=== PATIENT | female | born 1990 | race Caucasian/White ===

== ENCOUNTER → 2023-10-30 16:02 | Outpatient (REF) | payer BC, SELFPAY | LOC: PNTC 16:02 | PROVIDERS: ATTENDING PHYSICIAN Obstetrics & Gynecology | DX: O35.5XX0 Maternal care for (suspected) damage to fetus by drugs, not applicable or unspecified (principal); O98.519 Other viral diseases complicating pregnancy, unspecified trimester; U07.1 COVID-19 | CPT/HCPCS: 76816 ==

== ENCOUNTER → 2023-11-28 15:54 | Outpatient (REF) | payer BC, SELFPAY | LOC: PNTC 15:54 | PROVIDERS: ATTENDING PHYSICIAN Obstetrics & Gynecology | DX: O98.519 Other viral diseases complicating pregnancy, unspecified trimester (principal) | CPT/HCPCS: 76816 ==

== ENCOUNTER 2023-12-08 01:24 | Inpatient (IN) | payer BC, SELFPAY ==
[2023-12-08 01:50] VITALS: BP 141/58; BMI 33.0
[2023-12-08] MEDS: LR 1000 IV (02:20)
[2023-12-08 02:41] LABS: % Basophils 0.3 % (0-2); % Eosinophils 0.6 % (0-6); % Immature Granulocytes 0.6 % (0-0.5); % Monocytes 5.4 % (1.7-9.3); % Neutrophils 81.1 % (42.2-75.2); Absolute Basophils 0.1 10^3/uL (0-0.2); Absolute Eosinophils 0.1 10^3/uL (0-0.7); Absolute Immature Granulocytes 0.1 10^3/uL (0-0.05); Absolute Lymphocytes 2.1 10^3/uL (1.2-3.4); Absolute Neutrophils 14.2 10^3/uL (1.4-6.5); Hematocrit 35.7 % (37.0-47.0); Hemoglobin 12.6 g/dL (12.0-16.0); Mean Corp Hgb Conc. 35.3 g/dL (33.0-37.0); Mean Corpuscular Hgb 31.2 pg (27.0-31.0); Mean Corpuscular Volume 88.4 fL (81.0-99.0); Mean Platelet Volume 12.2 fL (7.4-10.4); Nucleated Red Blood Cells % 0 %; Platelet Count 183 10^3/uL (130-400); Red Blood Cell Count 4.04 10^6/uL (4.20-5.40); Red Cell Dist. Width 12.5 % (11.5-14.5); White Blood Cell Count 17.5 10^3/uL (4.8-10.8)
[2023-12-08] MEDS: SUBLIMAZE 100 MCG EPIDURAL (03:22)
[2023-12-08] MEDS: FENTANYL/BUPIVACAINE 100 EPIDURAL (03:37)
[2023-12-08] MEDS: MOTRIN 600 MG PO (20:29)
[2023-12-09] MEDS: MOTRIN 600 MG PO ×2 (04:24→19:22)
[2023-12-09 04:36] LABS: Hematocrit 30.9 % (37.0-47.0); Hemoglobin 10.9 g/dL (12.0-16.0)
[2023-12-09] MEDS: TYLENOL 650 MG PO (19:34)
[2023-12-12 14:19] LABS: Syphilis/T. pallidum Ab Reflex Negative (Negative)
== END 2023-12-10 11:40 | disposition home or self-care (01) | DRG 807 ==
LOC: LDRP 01:24
PROVIDERS: Obstetrics & Gynecology; ADMITTING PHYSICIAN Obstetrics & Gynecology; FAMILY PHYSICIAN Family Medicine
PROC: 0UQMXZZ Repair Vulva, External Approach (ICD-10-PCS; 2023-12-08)
PROC: 10E0XZZ Delivery of Products of Conception, External Approach (ICD-10-PCS; 2023-12-08)
PROC: 0KQM0ZZ Repair Perineum Muscle, Open Approach (ICD-10-PCS; 2023-12-08)
DX: O70.1 Second degree perineal laceration during delivery (principal); Z37.0 Single live birth; Z3A.38 38 weeks gestation of pregnancy
CPT/HCPCS: 85014; 85018; 85025; 86780; 86850; 86900; 86901